=== PATIENT | female | born 1965 | race Caucasian/White ===

== ENCOUNTER 2017-12-10 17:46 | Emergency (ER) | payer BC ==
[2017-12-10] MEDS ORDERED: ONDANSETRON HCL IV 4 MG/2 ML VIAL IVP ONE (17:58)
[2017-12-10] MEDS ORDERED: KETOROLAC 30 MG/ML VIAL IVP ONE (17:58)
[2017-12-10] MEDS ORDERED: 0.9 % SODIUM CHLORIDE 1000ML 1,000 ML IV SCH (18:00)
--- NOTE | 2017-12-10 18:03 | Emergency Department Record ---
History of Present Illness - General Stated complaint: FEVER,BODY ACHES,COUGH,WEAKNESS,NAUSEA Time Seen by Provider: 12/10/17 17:58 Source: Patient Mode of Arrival: Ambulatory Limitations: No limitations - History of Present Illness Initial comments: 52 yo female presents to ED for evaluation of a 1-day history of generalized weakness, body aches, headache, and nausea symptoms. Patient denies any recent ill contacts, denies productive cough symptoms. Patient reports taking zofran earlier for her symptoms that did not significantly improve her symptoms. Patient denies health problems at her baseline. MD Complaint: Generalized weakness Onset/Timin -: Days(s) Location: Generalized Severity: Moderate Quality: Aching Consistency: Constant Improves with: None Worsens with: None Context: Recent illness Associated Symptoms: Fever/chills, Headaches, Myalgias - Frandy Coma Scale Eye Response: (4) Open spontaneously Motor Response: (6) Obeys commands Verbal Response: (5) Oriented [place] Total: 15 - Related Data Previous Rx's Medication Instructions Recorded Ondansetron [Zofran Odt] 4 mg PO Q4H #20 tab.rapdis 09/30/16 Allergies Allergy/AdvReac Type Severity Reaction Status Date / Time No Known Drug Allergies Allergy Verified 09/30/16 19:41 Review of Systems Constitutional: Reports: Fever, Malaise, Weakness. Denies: Chills, Night sweats Eyes: Denies: Eye discharge, Eye pain ENT: Denies: Congestion, Ear pain, Epistaxis, Hearing loss Respiratory: Denies: Cough, Dyspnea Cardiovascular: Denies: Chest pain, Dyspnea on exertion Endocrine: Reports: Fatigue. Denies: Heat or cold intolerance Gastrointestinal: Reports: Nausea. Denies: Abdominal pain, Constipation, Vomiting Genitourinary: Denies: Incontinence, Retention Musculoskeletal: Denies: Arthralgia, Back pain, Gout, Joint swelling Skin: Denies: Bruising, Change in color Neurological: Reports: Headache, Weakness. Denies: Abnormal gait, Confusion Psychiatric: Denies: Anxiety Hematological/Lymphatic: Denies: Anemia, Blood Clots Past Medical History - SOCIAL HISTORY Smoking Status: Never smoker Drug Use: None - RESPIRATORY Hx Respiratory Disorders: No - CARDIOVASCULAR Hx Cardio Disorders: No - NEURO Hx Neuro Disorders: Yes Hx Headaches: Yes (migraines) - GI Hx GI Disorders: No - Hx Genitourinary Disorders: No - ENDOCRINE Hx Endocrine Disorders: No - MUSCULOSKELETAL Hx Musculoskeletal Disorders: No - PSYCH Hx Psych Problems: No - HEMATOLOGY/ONCOLOGY Hx Hematology/Oncology Disorders: No Physical Exam - General General Appearance: Alert, Oriented x3, Cooperative, Moderate distress Limitations: No limitations - Head Head exam: Atraumatic, Normocephalic, Normal inspection Head exam detail: negative: Abrasion, Contusion, Mobley's sign, General tenderness, Hematoma, Laceration - Eye Eye exam: Normal appearance. negative: Conjunctival injection, Periorbital swelling, Periorbital tenderness, Scleral icterus - ENT Ear exam: negative: Auricular hematoma, Auricular trauma Nasal Exam: negative: Active bleeding, Discharge, Dried blood, Foreign body Mouth exam: negative: Drooling, Laceration, Muffled voice, Tongue elevation - Neck Neck exam: Normal inspection. negative: Meningismus, Tenderness - Respiratory Respiratory exam: Normal lung sounds bilaterally. negative: Respiratory distress, Rhonchi, Stridor, Wheezes - Cardiovascular Cardiovascular Exam: Regular rate, Normal rhythm, Normal heart sounds - GI/Abdominal GI/Abdominal exam: Soft. negative: Distended, Rebound, Rigid, Tenderness - Rectal Rectal exam: Deferred - exam: Deferred - Extremities Extremities exam: Normal inspection. negative: Calf tenderness, Pedal edema, Tenderness - Back Back exam: Denies: CVA tenderness (R), CVA tenderness (L) - Neurological Neurological exam: Alert, Normal gait, Oriented X3 - Psychiatric Psychiatric exam: Normal affect, Normal mood - Skin Skin exam: Normal color. negative: Abrasion Type of lesion: negative: abrasion Course - Reevaluation(s) Reevaluation #1: 12/10/17 19:25 Labs reviewed, WBC 3.5, AST 82/ALT 104. Patient is also positive for Influenza B. Labs are otherwise grossly unremarkable for an acute process. Reevaluation #2: 12/10/17 20:05 Patient reassessed and reports significant improvement in her symptoms, appears stable for discharge on Tamiflu as directed. Medical Decision Making - Lab Data Result diagrams: 12/10/17 18:55 12/10/17 18:55 Disposition Disposition: Discharge Clinical Impression: Influenza B Disposition: Home, Self-Care Condition: (2) Stable Instructions: Influenza (ED) Additional Instructions: Return to ED if your symptoms worsen or if you have any concerns. Tamilflu as directed. Follow-up with your family doctor in 3-5 days as directed. Time of Disposition: 20:06 Quality - Quality Measures Quality Measures: N/A - Blood Pressure Screening Does Patient Have Any of the Following: No Blood Pressure Classification: Normal BP Reading Systolic Measurement: 119 Diastolic Measurement: 63 Screening for High Blood Pressure: < Normal BP, F/U Not Required > [G8783]
[2017-12-10 18:43] LABS: INFLUENZA A NEGATIVE (NEGATIVE)
[2017-12-10 18:44] LABS: INFLUENZA B POSITIVE (NEGATIVE)
[2017-12-10 19:04] LABS: HEMOGLOBIN 12.3 gm/dl (11.6-16.0); MEAN CELL VOLUME 89.4 fl (81-97); MEAN CORPUSCULAR HEMOGLOBIN 28.9 pg (27-33); MEAN CORPUSCULAR HGB CONC 32.4 g/dl (32-36); PLATELET COUNT 164 K/uL (130-400); RED BLOOD COUNT 4.25 M/uL (3.80-5.40); RED CELL DISTRIBUTION WIDTH 13.1 % (11.5-14.5); WHITE BLOOD COUNT W/O DIFF 3.5 K/uL (4.2-12.2)
[2017-12-10 19:17] LABS: BLOOD UREA NITROGEN 10 mg/dL (6-20); CREATININE 0.6 mg/dL (0.5-0.9); EST GLOMERULAR FILTRATION RATE > 60 mL/min
[2017-12-10 19:20] LABS: GLUCOSE,RANDOM 120 mg/dL (74-109)
[2017-12-10 19:22] LABS: ALT/SGPT 104 U/L (<33)
[2017-12-10 19:23] LABS: ALB/GLOB RATIO 1.4 (1.1-1.8); ALBUMIN 4.1 g/dL (4.0-5.0); ALKALINE PHOSPHATASE 90 U/L (35-104); AST/SGOT 82 U/L (10.0-35.0)
[2017-12-10] MEDS ORDERED: OSTELTAMIVIR 75 MG CAP PO ONE (19:34)
== END 2017-12-10 20:13 | disposition home or self-care (01) ==
LOC: ER 17:46
DX: J10.1 Influenza due to other identified influenza virus with other respiratory manifestations (principal); R53.1 Weakness
CPT/HCPCS: 99284 ×2; 96374; 96375; 80053; 87400; 85027; J1885; J2405; J7030